=== PATIENT | female | born 1990 ===

== ENCOUNTER 2017-06-23 20:20 | Emergency (ER) | payer MEDICAID ==
[2017-06-23 20:21] VITALS: BMI 24.7
[2017-06-23 20:37] VITALS: BP 122/65; PULSE 86; RESP 16; TEMP 98.4; O2SAT 100
[2017-06-23] MEDS ORDERED: Sodium Chloride 0.9% 1,000 ML IV STA (20:49)
--- NOTE | 2017-06-23 21:08 | ED PDOC ---
HPI: Headache Chief Complaint (Provider): headache, nausea and dizziness History Per: Patient History/Exam Limitations: no limitations Onset/Duration Of Symptoms: Days Current Symptoms Are (Timing): Still Present Severity: Severe Pain Scale Rating Of: 10 Quality: Squeezing Preceeding Symptoms: Visual Disturbances Associated Symptoms: Photophobia, Nausea. denies: Vomiting Additional Complaint(s): 27 yr old F presents to ED with complaint of severe headache which started yesterday, associated symptoms are nausea, dizziness, photophobia and sinus frontal and maxillary sinus tenderness bilaterally. Headache is 10/10 on pain scale, squeezing in quality, was not alleviated by Tylenol 2tabs twice today. Patient denies fevers, chills, syncope, neck stiffness or vomiting. PMHx includes recurrent headaches and vertigo. She saw an wound/ostomy nurse 2 weeks ago and was told exam was within normal limits. Her PMD Rosa Coronado gave her referral for CT scan but she has not had time to schedule it. PMD: Rosa Coronado PMHx: recurrent headaches, vertigo OBHx: GYnHx: LMP 06/18/17 SurgHx: 3 c-sections, appendectomy, repair of umbilical hernia FMHx: none SocHx: denies Etoh, drugs or smoking Med: Tylenol PRN (last use 4 tabs today) Allergies: Morphine <Rowena Orantes - Last Filed: 06/23/17 22:40> <Khang Funes - Last Filed: 06/24/17 03:16> Time Seen by Provider: 06/23/17 20:32 Chief Complaint (Nursing): Headache Supervising Attending Note - Attestation: I have personally seen and examined this patient.: Yes I have fully participated in the care of the patient.: Yes I have reviewed all pertinent clinical information: Yes - Notes: Notes:: nonthunderclap, not sudden onset. <Khang Funes - Last Filed: 06/24/17 03:16> Past Medical History Vital Signs: Last Vital Signs Temp 98.4 F 06/23/17 20:30 Pulse 86 06/23/17 20:30 Resp 16 06/23/17 20:30 BP 122/65 06/23/17 20:30 Pulse Ox 100 06/23/17 20:30 - Medical History PMH: Anemia Denies: HIV - Surgical History Surgical History: Appendectomy, (x3) - Family History Family History: States: No Known Family Hx - Living Arrangements Living Arrangements: With Family - Social History Current smoker - smoking cessation education provided: No Ex-Smoker (has not smoked in the last 12 months): No Alcohol: None Drugs: Denies - Immunization History Hx Tetanus Toxoid Vaccination: No Hx Influenza Vaccination: No Hx Pneumococcal Vaccination: No <Rowena Orantes - Last Filed: 06/23/17 22:40> Vital Signs: Last Vital Signs Temp 98.4 F 06/23/17 20:30 Pulse 86 06/23/17 20:30 Resp 16 06/23/17 20:30 BP 122/65 06/23/17 20:30 Pulse Ox 100 06/23/17 22:40 <Khang Funes - Last Filed: 06/24/17 03:16> - Home Medications Home Medications: Ambulatory Orders Medication Instructions Recorded Ca Pantothenate/Folic Acid/V [Once 1 tab PO DAILY 12/07/14 Daily Multi-Vitamin] Ibuprofen [Motrin] 600 mg PO Q6H PRN 12/07/14 Oxycodone HCl/Acetaminophen 1 tab PO Q4 #30 tab 12/09/14 [Percocet 325 mg-5 mg] levoFLOXacin [Levaquin] 500 mg PO DAILY #7 tab 06/29/15 Aspirin/Acetaminophen/Caffeine 1 each PO Q8 #30 tablet 06/23/17 [Excedrin Migraine Geltab] - Allergies Allergies/Adverse Reactions: Allergies Allergy/AdvReac Type Severity Reaction Status Date / Time morphine Allergy RASH Verified 06/23/17 20:30 Review of Systems Constitutional: Negative for: Fever, Chills, Weakness Eyes: Positive for: Pain, Vision Change (photophobia) ENT: Negative for: Ear Pain, Ear Discharge, Nose Congestion, Throat Pain Cardiovascular: Negative for: Chest Pain, Palpitations Respiratory: Negative for: Cough, Shortness of Breath Gastrointestinal: Positive for: Nausea. Negative for: Vomiting, Abdominal Pain , Diarrhea Genitourinary Female: Negative for: Dysuria Musculoskeletal: Negative for: Neck Pain Skin: Negative for: Rash Neurological: Positive for: Headache, Dizziness. Negative for: Weakness, Change in Speech, Confusion <Rowena Oranets - Last Filed: 06/23/17 22:40> Physical Exam - Physical Exam Appears: Positive for: Uncomfortable (holding left side of head) Skin: Positive for: Normal Color, Warm, Dry Eye Exam: Positive for: EOMI, PERRL ENT: Positive for: TM Is/Are (clear, intact), Sinus Pain/Drainage (bilateral frontal and maxillary sinus tenderness). Negative for: Nasal Congestion, Pharyngeal Erythema, Tonsillar Exudate Neck: Positive for: Normal, Painless ROM, Trachea Midline. Negative for: Limited ROM Cardiovascular/Chest: Positive for: Regular Rate, Rhythm. Negative for: Murmur Respiratory: Positive for: Normal Breath Sounds. Negative for: Rales, Rhonchi, Wheezing Pulses-Carotid (L): 2+ Pulses-Carotid (R): 2+ Pulses-Radial (L): 2+ Pulses-Radial (R): 2+ Gastrointestinal/Abdominal: Positive for: Bowel Sounds (normal), Soft. Negative for: Tenderness Extremity: Positive for: Normal ROM, Capillary Refill (less than 2 sec). Negative for: Pedal Edema, Calf Tenderness Neurologic/Psych: Positive for: Alert, roll wrapper II-XII, Oriented, Gait (normal). Negative for: Aphasia, Facial Droop <Rowena Orantes - Last Filed: 06/23/17 22:40> - ECG O2 Sat by Pulse Oximetry: 100 - Progress ED Course And Treament: Toradol 15mg IV, Reglan 10mg IV, 1L NS at 500mls/hr Condition: Improved (patient tolerating PO diet, conversing comfortably with family member at bedside) <Rowena Orantes - Last Filed: 06/23/17 22:40> Disposition - Patient ED Disposition Is Patient to be Admitted: No Counseled Patient/Family Regarding: Need For Followup - Disposition Disposition: Routine/Home Disposition Time: 22:35 <Rowena Orantes - Last Filed: 06/23/17 22:40> <Khang Funes - Last Filed: 06/24/17 03:16> - Clinical Impression Clinical Impression: Migraine - Disposition Referrals: Rosa Lux DO [Family Provider] - Condition: STABLE Additional Instructions: -Follow up with PMD and scheduled CT scan Head as prescibed by PMD, ED precautions reviewed Prescriptions: Aspirin/Acetaminophen/Caffeine [Excedrin Migraine Geltab] 1 each PO Q8 #30 tablet Instructions: Migraine Headache (ED) Forms: [employer] (Kinyarwanda)
== END 2017-06-23 23:09 | disposition home or self-care (01) ==
LOC: H.ER 20:20
DX: G43.909 Migraine, unspecified, not intractable, without status migrainosus (principal); Z79.82 Long term (current) use of aspirin
CPT/HCPCS: 96361; 96374; 96375; 99284; J1885; J2765; J7040